=== PATIENT | male | born 1950 | race Caucasian/White ===

== ENCOUNTER → 2024-12-23 10:45 | Outpatient (REF) | payer OTHER, SELFPAY | LOC: MRI 3T 10:45 | PROVIDERS: ATTENDING PHYSICIAN Physician Assistant; FAMILY PHYSICIAN Family Medicine; REFERRING PHYSICIAN Physical Medicine & Rehabilitation | DX: M54.16 Radiculopathy, lumbar region (principal) | CPT/HCPCS: 72148 ==

== ENCOUNTER 2025-09-19 15:45 | Emergency (ER) | payer OTHER, SELFPAY ==
[2025-09-19 15:55] VITALS: BP 188/83
--- NOTE | 2025-09-19 17:18 | ED.GENMED ---
History of Present Illness
General
Chief Complaint: Musculo-Skeletal Complaint
Source: patient
Time Seen by Provider: 09/19/25 17:08
History of Present Illness
History of Present Illness:
75-year-old male presents to the emergency room complaining of pain in his left hand. Patient fell yesterday added striking his left hand. He had mild pain initially which did seem to increase in intensity through the day. He has been using ice
and Tylenol with some improvement. He also notices decreased swelling today. The combination of discomfort and swelling made him concerned he may have broken a bone in his hand prompting his visit to the emergency room. Patient is right-hand
dominant. He does not take any oral anticoagulants. He denies any other injuries.
Past History
Past History
ED Past Medical History: CAD and HTN
ED Past Surgical History: Cardiac
Social History
Tobacco: Non-smoker
Alcohol: None
Phy Exam
Physical Exam
Physical Exam:
General: Awake, Alert, Oriented X3. No acute distress.
Vitals: unremarkable
Head: Atraumatic
Eyes: Pupils equal, EOMI
Neck: Trachea midline
Neuro: Nonfocal
Skin: Warm, dry, no rash
Extremities: pulses equal b/l, left hand has some mild swelling about the dorsal hand over the 2nd and 3rd metacarpals. Mild tenderness palpation. No deformity. Sensation intact.
Course
Orders/Labs/Results
Orders:
Orders
09/19/25 15:59
Hand, Left 3 View [CR Hand - Left Min 3 Views] Urgent
Comment:
Reason For Exam: left hand pain after falling yesterday
Vital Signs
Initial and Last Documented VS:
Initial Vital Signs
Temp Pulse Resp BP Pulse Ox
97.8 F 52 16 188/83 98
09/19/25 15:55 09/19/25 15:55 09/19/25 15:55 09/19/25 15:55 09/19/25 15:55
Last Documented Vital Signs
Temp Pulse Resp BP Pulse Ox
97.8 F 52 16 188/83 98
09/19/25 15:55 09/19/25 15:55 09/19/25 15:55 09/19/25 15:55 09/19/25 15:55
MDM/Problems Addressed
Differential Diagnosis Includes:
Fracture, contusion, sprain, dislocation
MDM/Problems Addressed:
Imaging shows no fracture or dislocation. Overall presentation seems most consistent with a sprain or contusion. No need for immobilization. Tylenol as needed for pain. Continue to ice. Activity as tolerated. Patient has appointment with [facility] on Tuesday as it is.
*Radiology
Radiology exam reviewed: preliminary read by ED provider (No fracture or dislocation noted on my review of the x-ray)
*Pulse Oximetry
SaO2: 98
Oxygen Mode of Delivery: Room air
Patient hypoxic: no
*Critical Care Note
Total Time (30-74mins, 75-104mins- exclusive of procedures): Not Applicable
ED Attending Note
-
Portions of this chart may have been created with voice recognition software.� Occasional wrong word or��sound alike� substitutions may have occurred due to the inherent limitations of voice recognition software.
Discharge Plan
Departure
Patient Disposition: Home (Routine Discharge)
Date of Disposition: 09/19/25
Time of Disposition: 17:22
Patient with high blood pressure during this ER visit?: Yes
Condition: Good
Discharge Problem:
Contusion of hand, left
Instructions: Hand pain
Prescriptions:
No Action
acetaminophen [Tylenol Arthritis Pain] 650 MG tablet extended release
1,300 mg PO DAILY PRN (Reason: pain)
tamsulosin 0.4 MG capsule
0.8 mg PO QPM
gabapentin 300 MG capsule
300 mg PO BID
aspirin 81 MG tablet,chewable
81 mg PO DAILY
ketoconazole 1 APPLIC cream
1 applic topical BID
famotidine-Ca carb-mag hydrox [Pepcid Complete] 1 EACH tablet,chewable
1 ea PO PRN PRN (Reason: reflux)
metformin 500 MG tablet
500 mg PO BID
amiodarone [Pacerone] 200 MG tablet
200 mg PO DAILY Qty: 14 0RF
Rx Instructions:
take one tablet once daily for 2 weeks then stop
metoprolol succinate 25 MG tablet extended release 24 hr
25 mg PO DAILY Qty: 30 1RF
Rx Instructions:
dose reduced from 50mg to 25 mg daily until further instruction
oxycodone 5 MG tablet
5 mg PO Q6HPRN PRN (Reason: moderate - severe pain) Qty: 28 0RF
atorvastatin 40 MG tablet
40 mg PO DAILY Qty: 90 3RF
Referrals:
Lianna Mehta I., DO [Active, Orthopedics]
Interventions
Interventions:
*Risk Screen - Suicide Last Done: 09/19/25 15:55
*General Assessment Last Done: 09/19/25 15:55
*Neglect/Abuse Screening Last Done: 09/19/25 15:55
*ED COVID-19 Vaccine History Last Done: 09/19/25 15:55
*ED Influenza Vaccine History Last Done: 09/19/25 15:55
Discharge Date and Time
Print Language: [facility]
== END 2025-09-19 17:35 | disposition home or self-care (01) ==
LOC: EMR 15:45
PROVIDERS: EMERGENCY PHYSICIAN Emergency Medicine; FAMILY PHYSICIAN Family Medicine
DX: S60.222A Contusion of left hand, initial encounter (principal); W19.XXXA Unspecified fall, initial encounter; I25.10 Atherosclerotic heart disease of native coronary artery without angina pectoris; I10 Essential (primary) hypertension; Z79.82 Long term (current) use of aspirin
CPT/HCPCS: 99283; 73130